=== PATIENT | male | born 1990 | race Caucasian/White ===

== ENCOUNTER → 2019-09-09 | Outpatient (CLI) | payer OTHER ==
[~2019-09-09] MED LIST: CYCL10 PO; Naprosyn500 MG PO; Ultram50 MG PO; Zofran Odt4 MG SL
[2019-09-12 03:37] LABS: CHLAMYDIA TRACHOMATIS, NAA Positive (Negative); NEISSERIA GONORRHOEAE, NAA Negative (Negative)
== END | disposition home or self-care (01) ==
LOC: LAB SHORT 18:51 → LAB EV 18:51
PROVIDERS: Family Medicine
DX: N34.2 Other urethritis (principal)
CPT/HCPCS: 87491; 87591

== ENCOUNTER 2020-04-10 16:45 | Emergency (ER) | payer OTHER ==
[~2020-04-10] VITALS: Ht 182.9 cm; Wt 68.0 kg
[2020-04-10] MEDS ORDERED: HYDR1TAB94 PO (19:30)
[2020-04-10] MEDS ORDERED: Robaxin-750750 MG PO (19:30)
[2020-04-10] MEDS ORDERED: IBUP800 PO (19:30)
== END 2020-04-10 19:59 | disposition home or self-care (01) ==
LOC: ER 16:45
DX: S49.91XA Unspecified injury of right shoulder and upper arm, initial encounter (principal); Z88.7 Allergy status to serum and vaccine; Z87.891 Personal history of nicotine dependence; V18.2XXA Unspecified pedal cyclist injured in noncollision transport accident in nontraffic accident, initial encounter
CPT/HCPCS: 73030; 99283-25

== ENCOUNTER → 2020-08-09 | Outpatient (CLI) | payer OTHER ==
[~2020-08-09] MED LIST changes: +HYDR1TAB94 PO; +IBUP800 PO; +Robaxin-750750 MG PO
[2020-08-11 05:10] LABS: CHLAMYDIA TRACHOMATIS, NAA Negative (Negative); NEISSERIA GONORRHOEAE, NAA Negative (Negative)
== END | disposition home or self-care (01) ==
LOC: LAB 19:19 → LAB SHORT 19:19
PROVIDERS: Nurse Practitioner Family
DX: Z20.2 Contact with and (suspected) exposure to infections with a predominantly sexual mode of transmission (principal)
CPT/HCPCS: 87491; 87591